=== PATIENT | male | born 1990 | race Caucasian/White ===

== ENCOUNTER 2016-11-12 20:42 | Emergency (ER) | payer OTHER ==
[~2016-11-12] VITALS: Ht 167.6 cm; Wt 65.9 kg
[~2016-11-12 20:42] MED LIST: METH54TA2
[2016-11-12 20:45] VITALS: BP 120/70; PULSE 56; RESP 16; O2SAT 99
--- NOTE | 2016-11-12 21:16 | ED.REPORT ---
HPI-Extremity Problem Upper Date of Service Nov 12, 2016 ED Provider: Dr. Schmitt 26 y/o male with no pertinent hx presents to the ED complaining of left index finger injury, onset 30 minutes ago. The pt states he struck the finger with a hammer at work. He is concerned he may have a fracture. Associated sx include numbness in the tip of his finger. He denies significant change in sensation. Nursing Notes Stated Complaint: LEFT INDEX FINGER INJURY Chief Complaint: Extremity Trauma Nursing Notes Reviewed: Yes Allergies: Coded Allergies: Penicillins (Verified Allergy, Unknown, BREATHING REACTION POST SINGLE DOSE (),not hospitalize, 03/15/09) codeine (Verified Allergy, Unknown, ABD CRAMPING SEVERE, 03/15/09) acetaminophen (Verified Adverse Reaction, Intermediate, Abdominal Pain, ) propoxyphene (Verified Adverse Reaction, Intermediate, Abdominal Pain, 13/02) Uncoded Allergies: No Known Allergies (Allergy, Unknown, 11/11/04) Scheduled Cephalexin (Keflex) 500 Mg Capsule 500 MG PO QID Scheduled PRN Hydrocodone-Acetaminophen 5-325 mg (Hydrocodone-Acetaminophen 5-325 mg) 1 Each Tablet 1 TABLET PO Q4H PRN PRN For Pain Ibuprofen (Ibuprofen) 600 Mg Tablet 600 MG PO QID PRN PRN For Pain Miscellaneous Medications Methylphenidate-Expunged Drug, Do Not Renew! (Concerta-Expunged Drug, Do Not Renew!) 54 Mg/Bottle Tab.[id number].[id number] General Time Seen by MD: 21:15 Chief Complaint Finger injury left 1 Hx Obtained From: Patient Arrived By: Walk-in Onset Occurred: Just prior to arrival Symptom Duration: Since onset Caused by: Blow Location: : Finger left 1 Quality: Painful Severity: Current: Moderate Severity: Maximum: Severe Recent Healthcare: No recent doctor visit Similar Sx Previous: No Past Medical History Past Medical History none reported Past Surgical History none reported Smoking History Unknown if Ever Smoker Ambulatory Status Independent Review of Systems Denies: significant change in sensation in left index finger Musculoskeletal: Reports: Extremity pain (left index finger) Neurologic: Reports: Numbness (left index finger) Complete sys rev & neg: except as marked. Physical Exam Initial Vital Signs Vital Signs (First) Date Time Temp Pulse Resp B/P Pulse Ox O2 Delivery O2 Flow Rate FiO2 11/12/16 20:45 36.8 56 16 120/70 99 Room Air Initial VS: Reviewed, Vital signs normal Head / Eyes: Atraumatic, Normocephalic Neck: Supple, Non-tender, Full range of motion Respiratory: Breath sounds normal, No respiratory distress Cardiovascular: Regular rate & rhythm, Intact distal pulses Lower Extremities: Vascular intact, Neuro intact, No swelling, No tenderness Skin: Warm, Dry, No cyanosis Neurologic: Alert, Oriented, Nonfocal General/Constitutional: Awake, Alert, Cooperative Upper Extremity / MS: Atraumatic, Full range of motion, No swelling, Non-tender , No erythema, No deformity, Neurologic intact, Vascular intact Wrist / Hand: Atraumatic, No deformity, Neurologic intact, Vascular intact Laceration on dorsum proximal IP joint and index finger of left hand IP joint swollen Distal sensation is diminished but intact. Interpretation & Diagnostics X-Ray Interpretation Xray Interpretation: IMPRESSION: left index finger fracture X-Ray Ordered: Hand left Interpretation / Wet Read by: Wet read ED physician Procedures Splint Post-Application Eval Splint Post-Application Eval: Splint applied by Tech Extremity Condition: Cap refill 2 sec, Distal sensation intact, Distal motor Intact, No compartment syndrome Re-Eval/Medical Decision Med Decision/Clinical Course 26-year-old struck his proximal interphalangeal joint with a hammer. There is a laceration overlying the dorsal joint. There appears to me to be a linear nondisplaced fracture in the distal end of the proximal phalanx. Radiology as interpreted this as negative. He is treated empirically as a fracture with splint, Keflex, and bacitracin dressing to the wound. No indication for sutures in this superficial gouge. Follow-up with orthopedics for referred to Doctor Alanis. Re-Evaluation/Progress #1: Time of Eval: 21:20 Re-Evaluation/Progress Note: Discussed imaging results and diagnosis. Informed the pt a splint will be applied. Discussed the plan to discharge. Pt understands and agrees with the plan. F/U instructions and RTER warning given. All questions addressed. Re-Evaluation/Progress #2: Time of Eval: 22:43 Patient Status: Condition improved Re-Evaluation/Progress Note: Pt given a work note as requested. Counseled Regarding: Diagnosis, Need for follow-up, When/why to return to ED Discharge & Departure Impression: Primary Impression: Fracture of proximal phalanx of hand, open Encounter type: initial encounter Finger: index finger Disposition: Home Discharge Condition All VS Reviewed: Yes Condition: Stable Patient Instructions: Finger Fracture (ED), Finger Laceration (ED) Additional Instructions: Bacitracin dressing four times daily to the open area on your finger. Replace bandage and splint immediately after applying ointment. Call orthopedics tomorrow morning for follow-up. Ibuprofen then Vicodin as needed for pain. Keflex four times daily. Return if any immediate issues. Referrals: Nancy Flores MD (PCP) Eric Alanis MD Scribe Attestation Portions of this note were transcribed by Wilmer Smith. I, , personally performed the history, physical exam and medical decision- making;I reviewed and confirmed the accuracy of the information in the transcribed note. Signed by Dillon Deras. 11/12/16 22:53 copies to: Eric Alanis MD; Nancy Flores MD, Christopher W MD Nov 12, 2016 21:16 Wilmer Smith Nov 12, 2016 21:45
--- NOTE | 2016-11-12 21:29 | DRSVH ---
PROCEDURE: X-RAY FINGERS, TWO VIEWS INDICATIONS: crush injury TECHNIQUE: AP hand, 2 views of the second finger(s) acquired. COMPARISON: None. FINDINGS: Bones: Slight appearance of subluxation at the second IP joint. No suspicious bony lesions. Soft tissues: No suspicious soft tissue calcifications. IMPRESSION: Slight subluxation at the second IP joint. No visualized fracture. Dictated by: Lena Machado M.D. on 11/12/2016 at 21:26 Approved by: Lena Machado M.D. on 11/12/2016 at 21:27
[2016-11-12] MEDS ORDERED: _HYDROcodone/APAP 5-325 mg Tablet PO PRN (21:45)
[2016-11-12] MEDS ORDERED: HYDROcodone-APAP 5-325 mg Tablet PO ONE (21:45)
[2016-11-12] MEDS ORDERED: IBUP-1827 PO (21:49)
[2016-11-12] MEDS ORDERED: HYDR-4003 PO (21:49)
[2016-11-12] MEDS ORDERED: CEPH-512 PO (21:49)
[2016-11-12 22:53] VITALS: BP 120/70; PULSE 60; RESP 14; O2SAT 99
== END 2016-11-12 23:11 | disposition home or self-care (01) ==
LOC: SED 20:42
DX: S61.211A Laceration without foreign body of left index finger without damage to nail, initial encounter (principal); W22.8XXA Striking against or struck by other objects, initial encounter; Y93.89 Activity, other specified; Y92.89 Other specified places as the place of occurrence of the external cause; Y99.0 Civilian activity done for income or pay; Z88.0 Allergy status to penicillin; Z88.5 Allergy status to narcotic agent; Z88.6 Allergy status to analgesic agent